=== PATIENT | female | born 1955 | race Two or more races ===

== ENCOUNTER 2023-03-28 13:18 | Outpatient (OUT) | payer OTHER, SELFPAY ==
--- NOTE | 2023-03-28 14:48 | MR_ITS ---
The [address] [address] Patient Name: RADHA CALLEJAS MRN: [facility]:[id number] date: 1955 Sex: F Assigned Patient Location: LAB Current Patient Location: Accession/Order Number: [id number] Exam Date: 03/28/2023 15:00 Report Date: 03/29/2023 06:54 At the request of: NEETA BENTLEY Procedure: MR abdomen wo/w con EXAMINATION: MR abdomen wo/w con HISTORY: Adrenal nodule E27.8 COMPARISON: No relevant comparison available. TECHNIQUE: A comprehensive MRI examination of the abdomen was performed to optimize visualization of suspected pathology. Images were obtained with and/or without intravenous Dotarem contrast as indicated by exam type. FINDINGS: LIVER: No enlargement, atrophy, abnormal signal, or significant focal lesion. BILIARY: No visible dilatation or calcification. PANCREAS: No lesion, fluid collection, ductal dilatation, or atrophy. SPLEEN: No enlargement or focal lesion. KIDNEYS: No mass or obstruction. ADRENALS: 2.2 x 1.7 cm left adrenal mass which demonstrates significant drop in signal intensity between in and out of phase sequences consistent with an adenoma. AORTA/VASCULAR: No aneurysm or dissection. RETROPERITONEUM: No mass or adenopathy. BOWEL/MESENTERY: No visible mass, obstruction, or bowel wall thickening. ABDOMINAL WALL: No mass or hernia. BONES: No bony lesion or fracture. LUNG BASES: No visible pleural disease. Lung bases not well assessed with MRI. OTHER: Negative. MR/MR abdomen wo/w con IMPRESSION: 1. Left adrenal mass 2.2 cm in size which favors a benign adrenal adenoma. Electronically authenticated by: LUCIA MAHMOOD Date: 03/29/2023 06:54
[2023-03-28 15:03] LABS: Estimated GFR (African America >60 (>=60); Estimated GFR (Non-African Ame >60 (>=60)
== END 2023-03-28 13:19 | disposition home or self-care (01) ==
LOC: LAB 13:22
DX: E27.8 Other specified disorders of adrenal gland (principal)
CPT/HCPCS: 36415; 74183; 82565; A9575